=== PATIENT | male | born 1980 | race Two or more races ===

== ENCOUNTER 2023-09-09 13:58 | Outpatient (REF) | payer BC, MEDICAID, SELFPAY ==
[2023-09-09 18:10] LABS: Urine Cytology See Pathology rpt
== END 2023-09-09 13:59 | disposition home or self-care (01) ==
LOC: HO.LNP 13:58
PROVIDERS: PCP Internal Medicine; Visit Provider Nurse Practitioner Family
DX: Z30.09 Encounter for other general counseling and advice on contraception (principal); R45.89 Other symptoms and signs involving emotional state
CPT/HCPCS: 81003; 88112

== ENCOUNTER 2023-09-09 13:58 | Outpatient (AMB) | payer BC, OTHER, SELFPAY ==
--- NOTE | 2023-09-09 14:14 | MHC.OFFVIS ---
Intake Visit Reasons: vasectomy consult Intake Note: New Patient presents today for initial visit to establish treatment for : Vasectomy Consult Children#4 Expected Children#0 Urology Medications: none Allergies to Antibiotic: none Blood Thinner: none Roundhouse Worker Required: No Accompanied by: Self / Same As Patient Allergies No Known Allergies Allergy (Unverified 09/09/23 15:19) Medication List - Last Reconciled 09/09/23 by JOSHUA Crouch- olmesartan 20 mg PO DAILY HPI Comments Details: Saul is a pleasant 42 year old pleasant male patient of Dr. Hodge. He has a past medical history of hypertension and obesity. He presents to the office today for - vasectomy evaluation Vasectomy evaluation The patient presents for vasectomy consultation.? He is currently single He has fathered -4 children with 2 partners The youngest child is -5 years old Current form of control; he is not currently sexually active as he is not with a partner at this time. 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 The vasectomy may be complicated due to a history of no complicating issues. Patient education has been provided via AUA video, via printed information, risks of failure, recovery time, bruising and potential pain syndrome have been stressed Discussion today focused on the presence of vasectomy and the risks, benefits and alternatives that are available. Vasectomy as intended as a permanent form of control. Printed information and literature was provided to the patient. Overall there is a one in 2500 failure rate. This can occur at any time after vasectomy. Risks were discussed highlighting hematoma, spermatocele, epididymal congestion, development of sperm antibodies, and development of chronic pain estimated between 1-5%. The procedure was reviewed in detail. Anatomical diagrams of the male genitalia were used to explain the location of the vas deferens. The vas deferens will be transected, the proximal end will be cauterized, a metal clip would be applied to separate the 2 vas deferens ends. It was explained the procedure will be done in the office and takes approximately 10-15 minutes. Less common problems that arise with vasectomy include hematoma, bleeding, allergic reaction to anesthetic, epididymal infection, epididymal congestion, scrotal discomfort, spermatic leak, spermatic granuloma and the possibility of antisperm antibodies. He understands these risks and wishes to proceed. Consent was signed at the office today. He also understands that it takes 12 weeks for sperm to fully clear the system. He will need to provide a semen sample at 12 weeks and if this is not clear a 2nd sample at 16 weeks. Medical clearance to stop using protection will only be provided if he satisfies published criteria for sperm clearance. Review of Systems Const All systems reviewed & are unremarkable except as noted in HPI and below Physical Exam Const General: cooperative, healthy appearing, comfortable, no acute distress, well developed, alert and awake Nutritional Appearance: overweight Orientation/consciousness: patient oriented x3 Limitations: no limitations HEENT Head: Yes normal to inspection, Yes normocephalic and Yes atraumatic Ears: hearing grossly normal bilaterally Eyes General: appearance normal, both eyes and all related structures Neck Neck: Yes normal visual inspection and Yes trachea midline Chest Chest palpation & inspection: normal inspection of the chest Resp Effort & Inspection: normal respiratory effort and able to speak in complete sentences Cardio Rate: regular rate GI Inspection: Yes normal to inspection General: Yes no CVA tenderness Penis: normal penis Meatus: meatus normal Scrotum: scrotum normal Testes: Testes normal Back/Spine/Pelvis Back: no CVA tenderness Skin General skin exam: no rashes or lesions noted Neuro General: patient oriented x3 Extrem General: Yes normal to inspection Psych Appearance: grossly normal and well kempt Mental Status: mental status grossly normal Speech and movement: Normal speech and movement present and Clear speech present Affect: normal affect Attitude: cooperative Thought process: Normal thought process present Thought content: Normal thought content present Insight: Fair insight present (Psych) Judgement: Fair judgement present (Psych) Results AMB Urinalysis, Automated UA Leukoctes 0 Raghavendra/uL Last Edit by [email or web address] on 09/09/23 15:59 UA Nitrite Negative Last Edit by Blackwave on 09/09/23 15:59 UA Urobilinogen 0.2 mg/dL Last Edit by Blackwave on 09/09/23 15:59 UA Protein 15 mg/dL Last Edit by Blackwave on 09/09/23 15:59 UA pH 6.0 Last Edit by Blackwave on 09/09/23 15:59 UA Blood 200 Victorino/uL Last Edit by Blackwave on 09/09/23 15:59 UA Specific Henry 1.020 Last Edit by Bebo Frank on 09/09/23 15:59 UA Ketone Negative Last Edit by Bebo Frank on 09/09/23 15:59 UA Bilirubin 0 mg/dL Last Edit by Bebo Frank on 09/09/23 15:59 UA Glucose 0 mg/dL Last Edit by Bebo Frank on 09/09/23 15:59 Results Reviewed Results Reviewed: Laboratory Last Values Urine pH (Auto) 6.0 09/09/23 15:58 Specific Henry (Auto) 1.020 09/09/23 15:58 Urine Protein (Auto) 15 mg/dL 09/09/23 15:58 Glucose (UA)(Auto) 0 mg/dL 09/09/23 15:58 Urine Ketones (Auto) Negative 09/09/23 15:58 Urine Blood (Auto) 200 Victorino/uL 09/09/23 15:58 Urine Nitrite (Auto) Negative 09/09/23 15:58 Urine Bilirubin (Auto) 0 mg/dL 09/09/23 15:58 Urine Urobilinogen (Auto) 0.2 mg/dL 09/09/23 15:58 Leukocyte Esterase (Auto) 0 Raghavendra/uL 09/09/23 15:58 Assessment & Plan Assessment & Plan (1) Vasectomy evaluation: Code(s): Z30.09 - Encounter for other general counseling and advice on contraception Category: Medical (2) Anxiety about health: Code(s): R45.89 - Other symptoms and signs involving emotional state Category: Medical Plan In office urinalysis results reviewed with the patient today; as noted above; will send for urine cytology Discussed at length risks and benefits of vasectomy; as noted above. All questions were answered. Consent was obtained. Prescriptions provided; discussed specific instructions of bringing prescriptions to office day of procedure. Discussed semen analysis in office verses fellows; information provided Will schedule for in office vasectomy as discussed. Orders: Orders AMB Urinalysis Automated 09/09/23 Z13.9 - Encounter for screening, unspecified Urine Cytology 09/09/23 Z13.9 - Encounter for screening, unspecified Medications: New diazepam Take medication after arrival at office 2 mg PO BID 1 day PRN 2 tabs 0RF anxiety R45.89 - Other symptoms and signs involving emotional state acetaminophen-codeine 300-30 mg 1 tab PO Q8H 3 days 9 tabs 0RF R45.89 - Other symptoms and signs involving emotional state Patient Instructions: The patient had an opportunity to ask questions regarding the treatment plan. All questions were answered. Physical exam, labs, and imaging were discussed and reviewed in detail. As well as risks, benefits, and discussion of treatment choices. No major barriers to understanding were identified. The patient expressed understanding and agreement with the above treatment plan. The patient was made aware they should contact our office by phone for worsening of their current condition, the appearance of new symptoms, or with any questions or concerns. Compliance is encouraged with any medications and follow up testing that is ordered. It is a privilege to be allowed the opportunity to participate in? your urological care.? Again, if you have any questions or concerns If you have any questions or concerns please do not hesitate to contact me. The office is [phone]. This note is constructed using voice recognition software. While every effort has been made to ensure accuracy auto glass technician errors may have been included. Yours sincerely, KEVAN Crouch Coding Level of Care Code New Pt Level 4 (94721) Diagnoses Vasectomy evaluation Z30.09 Anxiety about health R45.89
== END 2023-09-09 14:47 | disposition home or self-care (01) ==
PROVIDERS: PCP Internal Medicine; Visit Provider Nurse Practitioner Family
DX: Z30.09 Encounter for other general counseling and advice on contraception (principal); R45.89 Other symptoms and signs involving emotional state
CPT/HCPCS: 99204

== ENCOUNTER 2023-12-21 15:02 | Outpatient (AMB) | payer BC, SELFPAY ==
--- NOTE | 2023-12-21 15:28 | MHC.OFFVIS ---
Intake Visit Reasons: Vasectomy Allergies No Known Allergies Allergy (Unverified 09/09/23 15:19) HPI Comments Details: Saul is a pleasant 42 year old pleasant male patient of Dr. Hodge. He has a past medical history of hypertension and obesity. He presents to the office today for - vasectomy evaluation Vasectomy evaluation The patient presents for vasectomy consultation.? He is currently single He has fathered -4 children with 2 partners The youngest child is -5 years old Current form of control; he is not currently sexually active as he is not with a partner at this time. 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 Review of Systems Const Denies chills and Denies fever(s) Card Reports no additional complaints and Denies syncope Resp Denies cough GI Denies abdominal pain and Denies heartburn Reports as per HPI and Denies change in libido Neuro Denies syncope Psych Denies change in libido Endo Denies change in libido Physical Exam Const General: cooperative, healthy appearing, comfortable and no acute distress Orientation/consciousness: patient oriented x3 HEENT Face and sinus: Yes normal facial exam Mouth: moist mucous membranes Neck Neck: Yes normal visual inspection, Yes full ROM and Yes trachea midline Chest Chest palpation & inspection: normal inspection of the chest Resp Effort & Inspection: normal respiratory effort, able to speak in complete sentences and no respiratory distress GI Inspection: Yes normal to inspection Back/Spine/Pelvis Cervical Spine: normal cervical lordosis Thoracic/Lumbar Spine: thoracic and lumbar spine normal to inspection Skin General skin exam: no rashes or lesions noted Neuro General: patient oriented x3, gait normal, tone normal and moves all extremities Extrem General: Yes normal to inspection and Yes capillary refill normal Office Procedures Vasectomy Details: Preoperative diagnosis: Anxiety regarding Postoperative diagnosis: Anxiety regarding unplanned Procedure: Bilateral vasectomy Informed consent had been completed. Preoperative and postoperative instructions were provided to the patient. The patient has transportation to home identified at the completion of the procedure. Anti-anxiolytic prescription medication had been taken after consent verification and all questions answered. Tylenol with Codeine pain medication was also provided. The penis was elevated using a rubber band that was attached to the patient's shirt. Both vasa were palpated through the skin using a 3 finger technique and the penoscrotal junction was prepped with Betadine. After Betadine application the left vas was elevated using a 3 finger grasping technique. 1% lidocaine was used to create a subdermal bubble. Further anesthetic was then advanced using the 25-gauge needle along the vasa in a proximal fashion. Approximately 2 minutes were allowed to for local anesthetic uptake. Using the sharp spreading instrument the scrotal skin was spread longitudinally in line with the vasa until the subdermal layer had been divided. The vasa was then elevated from the scrotum using a ring clamp. Care was taken to elevate the superior portion of the vasa by rotating the ring clamp in a caudad direction. The battery powered cautery was used to divide the vasal sheath in a longitudinal direction on the exposed vasa and to strip the vasal sheath from the vasa. A 2nd narrower ring clamp was placed on the exposed vas and used to lift the vas from the vasal sheath. so it grasped the elevated vas. The cautery was used to divide vasal attachments and allow full exposure of a small loop of vasa. The sharp spreading instrument was then used to create a tunnel under the vasa and spread to allow the blood vessels of the vasa to retract from the vasa. A mosquito clamp was placed on the proximal portion of the vas. The battery-powered cautery was used to make a partial division in the proximal vas and then inserted in order to cauterize the proximal end of the vas. This was then cut and allowed to retract into the vasal sheath. The mosquito was then used to twist the vasa 180 degrees creating a fascial interposition. Using a 4-0 chromic suture the fascial interposition was sutured closed. The distal portion of the vas was then cut in order to obtain a segment of vasa. The vasa were allowed to retract back into the scrotum. A small snap was then used to approximate the skin edges and allow hemostasis without placement of a suture. A similar procedure was repeated on the right side. He tolerated the procedure well. Triple antibiotic was applied. A gauze was applied. An ice pack was applied to assist with minimizing swelling. Postoperative instructions were confirmed. He understands the need to continue to use control methods. A semen sample should be brought for inspection under the microscope in 10-12 weeks. CPT 37841 Vasectomy performed by: Bj Keith Informed consent signed: Yes Time out checklist: patient, procedure, site marked/identified, positioning of patient, supplies available, allergies confirmed and team agrees on procedure Time out staff in room: Yes Time out verified: Yes 60781 - Vasectomy Assessment & Plan Assessment & Plan (1) Anxiety about health: Code(s): R45.89 - Other symptoms and signs involving emotional state Category: Medical Plan 12 week f/u Patient Instructions: Imaging studies, laboratory and physical exam results were discussed and reviewed in detail. No major barriers to patient understanding were identified. An opportunity to ask questions regarding the treatment plan was provided. All questions were answered. The patient expressed understanding and agreement with the above treatment plan. The patient is aware they should contact our office by phone for worsening of their current condition or the appearance of new urologic symptoms. Compliance is encouraged with any medications and followup testing that is ordered. It is a privilege to participate in the urologic care of your patient. If you have any questions or concerns regarding treatment for the above conditions, or other urologic issues, please do not hesitate to contact me. The office telephone contact is [phone]. This note is constructed using voice recognition software. While every effort has been made to ensure accuracy motorcycle delivery driver errors may have been included. Yours sincerely, Dr Bj Keith MD, [facility] - Urology Providers of Expert, Compassionate Care for the Genitourinary System Coding Level of Care Code Procedure Only Diagnoses Anxiety about health R45.89 CPT Codes Office Procedure - CPT: 72662 - Vasectomy ([id number])
== END 2023-12-21 17:00 | disposition home or self-care (01) ==
PROVIDERS: PCP Internal Medicine; Visit Provider Urology
DX: Z30.2 Encounter for sterilization (principal); R45.89 Other symptoms and signs involving emotional state
CPT/HCPCS: 55250

== ENCOUNTER → 2023-12-21 15:02 | Outpatient (BNVA) | payer BC, MEDICAID, SELFPAY | PROVIDERS: PCP Internal Medicine; Visit Provider Urology | DX: Z30.2 Encounter for sterilization (principal); F41.8 Other specified anxiety disorders | CPT/HCPCS: 55250 ==